=== PATIENT | female | born 1950 | race Hispanic/Latino ===

== ENCOUNTER 2017-11-29 09:21 | Outpatient (CLI) | payer MEDICARE, BC | END 2017-11-29 09:22 | disposition home or self-care (01) | LOC: BICMAMMO 09:21 | PROVIDERS: ATTEND Internal Medicine | DX: Z12.31 Encounter for screening mammogram for malignant neoplasm of breast (principal) | CPT/HCPCS: 77063; 77067 ==

== ENCOUNTER 2018-11-21 08:04 | Outpatient (CLI) | payer MEDICARE, BC ==
--- NOTE | 2018-11-21 12:56 | NM ---
NUCLEAR MEDICINE HIDA SCAN WITH EJECTION FRACTION: Date: 11/21/18 HISTORY: Epigastric pain. COMPARISON: None. TECHNIQUE: Patient administered 5.2 mCi technetium-99m mebrofenin intravenously. Ejection fraction determined af ter patient was administered 8 oz. of Ensure. FINDINGS: There is appropriate uptake of the radiotracer by the hepatic parenchyma. There is localization of th e radiotracer into the gallbladder as early as 10 minutes. There is passage of the radiotracer from t he common bile duct and small bowel loops. Gallbladder ejection fraction is 67%. IMPRESSION: 1. No scintigraphic evidence of acute cholecystitis. 2. 67% gallbladder ejection fraction. POS: [facility]
== END 2018-11-21 08:05 | disposition home or self-care (01) ==
LOC: NM 08:04
PROVIDERS: ATTEND Internal Medicine
DX: R10.13 Epigastric pain (principal)
CPT/HCPCS: 78227; A9537

== ENCOUNTER 2018-12-03 09:37 | Outpatient (CLI) | payer MEDICARE, BC ==
--- NOTE | 2018-12-03 11:56 | MMO ---
Bilateral MAMMO Bilat Screen [facility]. CLINICAL HISTORY: Patient is 68 years old and is seen for screening. The patient has no family history of breast cancer. The patient has no personal history of cancer. The patient has a history of left Ultrasound Guided Core Biopsy in August,. VIEWS: The views performed were: bilateral craniocaudal with tomosynthesis and bilateral mediolateral oblique with tomosynthesis. FILMS COMPARED: The present examination has been compared to prior imaging studies performed at [facility] on 08/31/2015, 03/28/2016, 09/01/2016 and 11/29/2017. MAMMOGRAM FINDINGS: The breasts are heterogeneously dense, which could obscure a lesion on mammography. Benign calcifications are noted bilaterally. There are no suspicious masses, suspicious calcifications, or new areas of architectural distortion. IMPRESSION: THERE IS NO MAMMOGRAPHIC EVIDENCE OF MALIGNANCY. A ROUTINE FOLLOW-UP MAMMOGRAM IN 1 YEAR IS RECOMMENDED. THE RESULTS OF THIS EXAM WERE SENT TO THE PATIENT. ACR BI-RADS Category 2 - Benign finding MAMMOGRAPHY NOTE: 1. A negative mammogram report should not delay a biopsy if a dominant of clinically suspicious mass is present. 2. Approximately 10% to 15% of breast cancers are not detected by mammography. 3. Adenosis and dense breasts may obscure an underlying neoplasm. Reported by: MANOLO SEARS MD Electonically Signed: [id number]
== END 2018-12-03 09:38 | disposition home or self-care (01) ==
LOC: BICMAMMO 09:37
PROVIDERS: ATTEND Internal Medicine
DX: Z12.31 Encounter for screening mammogram for malignant neoplasm of breast (principal)
CPT/HCPCS: 77063; 77067

== ENCOUNTER 2020-09-08 10:44 | Outpatient (CLI) | payer MEDICARE, BC | END 2020-09-08 10:45 | disposition home or self-care (01) | LOC: BICULT 10:44 | PROVIDERS: ATTEND Internal Medicine | DX: Z13.6 Encounter for screening for cardiovascular disorders (principal) | CPT/HCPCS: 76775 ==

== ENCOUNTER 2022-01-19 09:12 | Outpatient (CLI) | payer MEDICARE, BC | END 2022-01-19 09:13 | disposition home or self-care (01) | LOC: BICMAMMO 09:12 | PROVIDERS: ATTEND Internal Medicine | DX: Z13.820 Encounter for screening for osteoporosis (principal); Z78.0 Asymptomatic menopausal state; M85.852 Other specified disorders of bone density and structure, left thigh | CPT/HCPCS: 77080 ==

== ENCOUNTER 2022-03-16 11:48 | Outpatient (CLI) | payer MEDICARE, BC | END 2022-03-16 11:49 | disposition home or self-care (01) | LOC: BICRAD 11:48 | PROVIDERS: ATTEND Internal Medicine Rheumatology | DX: M25.561 Pain in right knee (principal); M25.562 Pain in left knee; M17.0 Bilateral primary osteoarthritis of knee ==

== ENCOUNTER 2023-02-22 11:04 | Outpatient (CLI) | payer MEDICARE ==
[2023-02-22] MEDS ORDERED: Iopamidol 370 76% 100 ML VIAL ONE (15:53)
== END 2023-02-22 11:05 | disposition home or self-care (01) ==
LOC: BICCT 11:04
PROVIDERS: ATTEND Internal Medicine
DX: R10.13 Epigastric pain (principal); K59.00 Constipation, unspecified; Z86.010 Personal history of colon polyps
CPT/HCPCS: 74170; 82565; Q9967

== ENCOUNTER 2023-03-27 11:52 | Outpatient (CLI) | payer MEDICARE | END 2023-03-27 11:53 | disposition home or self-care (01) | LOC: BICMAMMO 11:52 | PROVIDERS: ATTEND Internal Medicine | DX: Z12.31 Encounter for screening mammogram for malignant neoplasm of breast (principal) | CPT/HCPCS: 77063; 77067 ==

== ENCOUNTER 2024-03-28 12:51 | Outpatient (CLI) | payer MEDICARE | END 2024-03-28 12:52 | disposition home or self-care (01) | LOC: BICMAMMO 12:51 | PROVIDERS: ATTEND Internal Medicine | DX: Z12.31 Encounter for screening mammogram for malignant neoplasm of breast (principal); Z78.0 Asymptomatic menopausal state; Z91.89 Other specified personal risk factors, not elsewhere classified | CPT/HCPCS: 77063; 77067; 77080 ==